=== PATIENT | female | born 1935 | race Caucasian/White ===

== ENCOUNTER → 2024-05-05 13:49 | Outpatient (REF) | payer OTHER, SELFPAY | LOC: HWRAD 13:49 | PROVIDERS: ATTENDING PHYSICIAN Student in an Organized Health Care Education/Training Program; FAMILY PHYSICIAN Internal Medicine | DX: N18.32 Chronic kidney disease, stage 3b (principal) | CPT/HCPCS: 76770 ==

== ENCOUNTER → 2024-05-26 12:03 | Outpatient (REF) | payer OTHER, SELFPAY | LOC: HWRAD 12:03 | PROVIDERS: ATTENDING PHYSICIAN Internal Medicine | DX: R51.9 Headache, unspecified (principal) | CPT/HCPCS: 70450 ==

== ENCOUNTER → 2024-06-14 14:25 | Outpatient (REF) | payer OTHER, SELFPAY ==
[2024-06-14 16:27] LABS: Urine Albumin 2+ (Neg - Trace); Urine Bilirubin Negative (Negative); Urine Character Slightly Cloudy (Clear); Urine Color Yellow; Urine Glucose Negative (Negative); Urine Ketone Trace (Negative); Urine Leukocyte 2+ (Negative); Urine Nitrite Positive (Negative); Urine Occult Blood 4+ (Negative); Urine Specific Gravity 1.015 (<1.030); Urine Urobilinogen Negative (Neg - 1+)
[2024-06-14 16:37] LABS: Urine Squamous Cell 0-2 /LPF (Few)
[2024-06-14 16:39] LABS: Urine Bacteria Moderate (Negative); Urine Red Blood Cell 80-90 /HPF (0-2); Urine White Cell 90-100 /HPF (0-5)
== END ==
LOC: REG 14:25
PROVIDERS: ATTENDING PHYSICIAN Obstetrics & Gynecology; FAMILY PHYSICIAN Internal Medicine
DX: N39.0 Urinary tract infection, site not specified (principal)
CPT/HCPCS: 81003; 81015; 87086

== ENCOUNTER → 2024-08-15 11:14 | Outpatient (REF) | payer OTHER, SELFPAY ==
[2024-08-15 21:52] LABS: Urine Albumin Trace (Neg - Trace); Urine Bilirubin Negative (Negative); Urine Character Slightly Cloudy (Clear); Urine Color Yellow; Urine Glucose Negative (Negative); Urine Ketone Negative (Negative); Urine Leukocyte 2+ (Negative); Urine Nitrite Positive (Negative); Urine Occult Blood 4+ (Negative); Urine Urobilinogen Negative (Neg - 1+)
[2024-08-15 22:20] LABS: Urine Red Blood Cell >100 /HPF (0-2)
== END ==
LOC: REG 11:14
PROVIDERS: ATTENDING PHYSICIAN Obstetrics & Gynecology; FAMILY PHYSICIAN Internal Medicine
DX: N20.0 Calculus of kidney (principal); N39.0 Urinary tract infection, site not specified
CPT/HCPCS: 74018; 81003; 81015; 87077; 87086; 87186

== ENCOUNTER → 2024-11-21 11:16 | Outpatient (REF) | payer OTHER, SELFPAY | LOC: OLABMERCHI 11:16 | PROVIDERS: ATTENDING PHYSICIAN Obstetrics & Gynecology | DX: N39.0 Urinary tract infection, site not specified (principal) | CPT/HCPCS: 87086; 87088; 87186 ==

== ENCOUNTER 2024-11-27 06:12 | Day surgery (SDC) | payer OTHER, SELFPAY ==
[2024-11-22 09:16] LABS: Hematocrit 41.1 % (37.0-47.0); Hemoglobin 13.8 g/dL (12.0-16.0); Mean Corp Hgb Conc. 33.6 g/dL (33.0-37.0); Mean Corpuscular Hgb 31.2 pg (27.0-31.0); Mean Corpuscular Volume 92.8 fL (81.0-99.0); Mean Platelet Volume 11.1 fL (7.4-10.4); Platelet Count 169 10^3/uL (130-400); Red Blood Cell Count 4.43 10^6/uL (4.20-5.40); Red Cell Dist. Width 13.2 % (11.5-14.5)
[2024-11-22 09:54] LABS: Blood Urea Nitrogen 22 mg/dl (7-17); Calcium 9.5 mg/dl (8.4-10.2); Carbon Dioxide 28 mmol/L (22-30); Chloride 100 mmol/L (98-107); Glucose 98 mg/dl (70-99); Potassium 4.5 mmol/L (3.5-5.1); Sodium 139 mmol/L (135-145); eGFR 43.54
[2024-11-22 13:03] VITALS: BMI 17.8
[2024-11-27] VITALS (10 sets, daily range): BP systolic 114–130; BP diastolic 49–59; BMI 17.8
[2024-11-27] MEDS: NORMOSOL-R/PLASMALYTE-A 1000 IV (07:12)
[2024-11-27] MEDS: Pyridium 200 MG PO (07:12)
== END 2024-11-27 10:42 | disposition home or self-care (01) ==
LOC: SDS 06:12
PROVIDERS: ATTENDING PHYSICIAN Obstetrics & Gynecology; FAMILY PHYSICIAN Internal Medicine
DX: R33.9 Retention of urine, unspecified (principal); Z87.440 Personal history of urinary (tract) infections; N32.0 Bladder-neck obstruction
CPT/HCPCS: 57287; 36415; 80048; 85027; 93005; C1713; J1580

== ENCOUNTER → 2025-03-28 09:15 | Outpatient (REF) | payer OTHER, SELFPAY | LOC: HWRAD 09:15 | PROVIDERS: ATTENDING PHYSICIAN Internal Medicine | DX: S09.90XA Unspecified injury of head, initial encounter (principal); R47.89 Other speech disturbances; H93.8X2 Other specified disorders of left ear | CPT/HCPCS: 70450 ==

== ENCOUNTER → 2025-06-20 08:29 | Outpatient (REF) | payer OTHER, SELFPAY | LOC: HWRAD 08:29 | PROVIDERS: ATTENDING PHYSICIAN Physician Assistant; FAMILY PHYSICIAN Internal Medicine | DX: M35.3 Polymyalgia rheumatica (principal); M81.0 Age-related osteoporosis without current pathological fracture | CPT/HCPCS: 77080 ==

== ENCOUNTER 2025-06-21 11:43 | Emergency (ER) | payer OTHER, SELFPAY ==
[2025-06-21 11:45] VITALS: BP 112/65
[2025-06-21 11:46] VITALS: BP 112/65
[2025-06-21 12:00] VITALS: BP 95/48
[2025-06-21 12:09] LABS: Hematocrit 45.8 % (37.0-47.0); Hemoglobin 14.4 g/dL (12.0-16.0); Mean Corp Hgb Conc. 31.4 g/dL (33.0-37.0); Mean Corpuscular Volume 96.6 fL (81.0-99.0); Nucleated Red Blood Cells % 0 %; Platelet Count 155 10^3/uL (130-400); Red Cell Dist. Width 13.3 % (11.5-14.5)
--- NOTE | 2025-06-21 12:22 | ED.GENMED ---
History of Present Illness
General
Chief Complaint: Chest Pain
Source: patient
Exam Limitations: none
Time Seen by Provider: 06/21/25 12:03
History of Present Illness
History of Present Illness:
See MDM
Past History
Past History
ED Past Medical History: HTN and Other (Osteoporosis )
ED Past Surgical History: None
Social History
Tobacco: Non-smoker
Alcohol: None
Personal:
Employment: Employed
Phy Exam
Physical Exam
Physical Exam:
See MDM
Scores
Heart Score for Chest Pain Patients
STEMI patient?: No
History: Slightly or Non-Suspicious
ECG: Nonspecific Repolarization
Age: >/= 65 years
Risk Factors: 1 or 2 Risk Factors
Troponin: </= Normal Limit
Heart Score for Chest Pain Patients: 4
Heart Score Risk: 20.3% MACE over next 6 weeks
Course
Orders/Labs/Results
Orders:
Orders
06/21/25 11:45
Electrocardiogram (*1) Urgent
Reason for Study: Chest Pain
EKG- Treatment ONCE
06/21/25 11:49
Complete Blood Count/With Diff Urgent
06/21/25 12:21
CR Chest - 2 Views Urgent
Comment:
Reason For Exam: Left side chest pain
06/21/25 12:38
Comprehensive Metabolic Panel Urgent
Troponin I Urgent
Abnormal Lab Results
06/21/25 06/21/25
11:49 12:38
MCHC 31.4 L g/dL
(33.0-37.0)
MPV 11.1 H fL
(7.4-10.4)
Absolute Lymphs (auto) 0.7 L 10^3/uL
(1.2-3.4)
Neutrophils % 78.6 H %
(42.2-75.2)
Lymphocytes % 13.4 L %
(20.5-51.1)
Sodium 134 L mmol/L
(135-145)
BUN 24 H mg/dl
(7-17)
Glucose 159 H mg/dl
(70-99)
Total Protein 6.2 L g/dl
(6.3-8.2)
06/21/25 11:49
06/21/25 12:38
Vital Signs
Initial and Last Documented VS:
Initial Vital Signs
BP Pulse Ox
112/65 96
06/21/25 11:45 06/21/25 11:45
Last Documented Vital Signs
Temp Pulse Resp BP Pulse Ox
99.1 F 72 20 95/48 95
06/21/25 13:04 06/21/25 12:45 06/21/25 11:46 06/21/25 12:00 06/21/25 12:45
MDM/Problems Addressed
Differential Diagnosis Includes:
Note:
CHIEF COMPLAINT(S)
Chest pain and shortness of breath.
HISTORY OF PRESENT ILLNESS
The patient is an 89-year-old female who presented with a chief complaint of chest pain, arm pain, and shortness of breath. These symptoms have been occurring intermittently over the past two years. The patient reported that the pain started
recently, was intense, preventing her from walking around, and her heart felt like it was 'beating like 90 miles an hour.' The symptoms were present throughout the night but resolved by the time she presented to the emergency department. The patient
denies having a history of stents or heart attacks.
PHYSICAL EXAM
General: Alert, no acute distress.
Skin: Warm, dry.
Head: Normocephalic, atraumatic
Neck: Appears supple, trachea midline.
Eyes, Ears, Nose, Mouth, and Throat: Moist mucous membranes
Cardiovascular: No signs of cyanosis. Regular rate and rhythm
Respiratory: Respirations are non-labored. Lungs clear
Abdomen: Non-distended
Musculoskeletal: No deformities. No leg edema
Neurological: No focal neurological deficit observed.
Psychiatric: Cooperative, appropriate mood and affect.
ELECTROCARDIOGRAM (EKG)
My independent EKG interpretation is normal.
PLAN
- Obtain a chest x-ray to rule out any potential underlying issues.
- Conduct blood work, including a troponin level, to evaluate cardiac function.
- Consider outpatient monitoring with a Holter monitor to detect any arrhythmias if initial tests are normal.
- Suggest a follow-up with a heel buffer for further evaluation, given the recurrent nature of symptoms.
DIFFERENTIAL DIAGNOSIS
The Differential Diagnosis includes, in no particular order and is not limited to:
- Angina pectoris
- Arrhythmias
- Myocardial infarction
- Pulmonary embolism
- Gastroesophageal reflux disease (GERD)
- Costochondritis
- Anxiety disorder
- Heart failure
- Anemia
- Pericarditis
SUMMARY OF ENCOUNTER
The patient, an 89-year-old female, was seen in the emergency department for evaluation of chest pain and shortness of breath, symptoms she has experienced intermittently for two years. An EKG performed was normal, and the plan includes a chest
x-ray and blood work to further assess her cardiac status. Outpatient evaluation, potentially including a Holter monitor, is considered, and a follow-up with a heel buffer is advised.
DISPOSITION
Discharge planned if tests are normal.
MEDICAL DECISION MAKING
- Complexity of Data Reviewed: Chronic conditions affecting care (none mentioned by the patient) and the Differential Diagnosis list.
- Data:
- Category 1: An EKG was ordered and independently interpreted. A chest x-ray and blood work, including a troponin test, are planned.
- Risk: Prescription medication management was considered due to the patients symptoms; however, further diagnostic evaluation is prioritized.
DIAGNOSIS
- Chest pain, unspecified (ICD-10: R07.9)
- Shortness of breath (ICD-10: R06.02)
EKG
My independent EKG interpretation is:
- Rhythm: Normal sinus rhythm
- Heart rate: 78 beats per minute
- [place]: Leftward axis
- ST Segment: No ST elevation
- Intervals: Within normal limits
SUMMARY OF ENCOUNTER
The patient, an 89-year-old female, was seen in the emergency department for evaluation of chest pain and shortness of breath, which she has experienced intermittently for the past two years. During the evaluation, a chest x-ray and troponin level
were performed. The chest x-ray was clear with no acute pathology, and the troponin level was negative. The EKG showed a non-ischemic pattern, which decreased suspicion for acute coronary syndrome. The patients symptoms resolved on their own.
Discussions were held regarding the potential GI-related origin of symptoms or possibly an undiagnosed arrhythmia. It was advised that she have further evaluation by her primary care doctor.
DISPOSITION
Discharge planned if tests are normal.
ASSESSMENT
The symptoms may be due to gastrointestinal-related issues or undiagnosed arrhythmia, given the absence of acute coronary syndrome indicators.
PLAN
- Recommend follow-up with primary care for further evaluation of symptoms, including potential gastrointestinal or cardiac issues.
- Suggested outpatient monitoring with a Holter monitor to detect any undiagnosed arrhythmias if initial tests remain normal.
INDEPENDENT REVIEW OF LABS AND INTERPRETATION OF TESTS
- My independent review of the chest x-ray is clear with no acute pathology.
- My independent review of the troponin level is negative.
- My independent interpretation of the EKG indicates a non-ischemic pattern.
FOLLOW-UP INSTRUCTIONS
Follow up with the primary care physician to further evaluate symptoms and discuss potential GI or cardiac evaluations.
MEDICAL DECISION MAKING
-Complexity of Data Reviewed: Differential Diagnosis including angina pectoris, arrhythmias, myocardial infarction, pulmonary embolism, gastroesophageal reflux disease (GERD), costochondritis, anxiety disorder, heart failure, anemia, pericarditis.
-Data:
Category 1
An EKG was ordered and independently interpreted. A chest x-ray and blood work, including a troponin test, were reviewed.
-Risk:
Consideration of Admission/Observation: Escalation of care including admission/observation was considered given the complexity and risk of the patients presenting complaint, exam findings, and/or their underlying comorbidities. However, ultimately,
I feel the patient is safe for outpatient management with close follow-up. Reasoning: Work-up reassuring, does not reveal any acute life/organ threatening processes, patients symptoms well controlled upon reevaluation, reexamination is reassuring,
vitals are stable, patient agreeable with discharge, reliable for follow-up.
DIAGNOSIS
- Chest pain, unspecified (ICD-10: R07.9)
- Shortness of breath (ICD-10: R06.02)
*Pulse Oximetry
SaO2: 96
Oxygen Mode of Delivery: Room air
Patient hypoxic: no
*Critical Care Note
Total Time (30-74mins, 75-104mins- exclusive of procedures): Not Applicable
ED Attending Note
-
Portions of this chart may have been created with voice recognition software.� Occasional wrong word or��sound alike� substitutions may have occurred due to the inherent limitations of voice recognition software.
Discharge Plan
Departure
Patient Disposition: Home (Routine Discharge)
Date of Disposition: 06/21/25
Time of Disposition: 14:05
Patient with high blood pressure during this ER visit?: No
Discharge Problem:
Chest discomfort
Instructions: Chest Pain PCP Follow Up
Prescriptions:
No Action
spironolactone 25 MG tablet
25 mg PO BID
estradiol 1 APPLIC cream
1 dose topical MOWEFR
Prolia 60 MG/ML syringe
60 mg SQ [id number]
acetaminophen 500 mg Tablet
500 mg PO Q6H PRN (Reason: pain)
Benefiber (guar gum) Packet
5 packet PO DAILY
Hair,Skin and Nails Tablet
1 tab PO MOWEFR
simethicone [Gas-X] 80 mg Tablet,Chewable
80 mg PO PRN PRN (Reason: Flatulance)
brimonidine-timolol [Combigan] 0.2-0.5 % Drops
1 drp OPHTHALMIC (EYE) BID
omeprazole 20 mg Tablet,Delayed Release (Dr/Ec)
20 mg PO QPM
PreserVision AREDS-2 250-90-40-1 mg Capsule
1 tab PO BID
prednisolone acetate (PF) 1 % Drops,Suspension
1 drp BOTH EYES BID
Centrum Minis Women 50 Plus 4 mg iron-200 mcg-25 mcg Tablet
1 tab PO BID
lactase
1 tab PO PRN PRN (Reason: Dairy products)
sennosides [senna] 8.6 mg Tablet
4.3 mg PO PRN PRN (Reason: Constipation)
polyethylene glycol 3350 [Miralax] 17 gram Powder In Packet
8.5 g PO PRN PRN (Reason: Constipation)
Referrals:
UNKNOWN - PT NOT,INTERVIEWE [Family Provider]
Activity Restrictions/Additional Instructions:
Please return for any worsening symptoms.
You may return at any time if you have further concerns.
Please follow up with your doctor at the first available appointment, preferably this week. Please talk to your doctor about your symptoms or whether or not to pursue it further such as a Holter monitor and an echocardiogram.
Thank you for choosing [facility].
Interventions
Interventions:
*Risk Screen - Suicide Last Done: 06/21/25 11:46
*General Assessment Last Done: 06/21/25 11:46
*Neglect/Abuse Screening Last Done: 06/21/25 11:46
*ED COVID-19 Vaccine History Last Done: 06/21/25 11:46
*ED Influenza Vaccine History Last Done: 06/21/25 11:46
[facility] Risk Assessment Tool Last Done: 06/21/25 11:46
ED- Cardiac Assessment Last Done: 06/21/25 11:46
Discharge Date and Time
Print Language: BENGALI
--- NOTE | 2025-06-21 12:45 | EDRN ---
Patient resting comfortably with friend at bedside, call iniguez in reach.
[2025-06-21 13:03] LABS: ALT (SGPT) 18 U/L (0-35); AST (SGOT) 25 U/L (14-36); Albumin 3.6 g/dl (3.5-5.0); Alkaline Phosphatase 55 U/L (38-126); Blood Urea Nitrogen 24 mg/dl (7-17); Calcium 8.7 mg/dl (8.4-10.2); Carbon Dioxide 29 mmol/L (22-30); Chloride 104 mmol/L (98-107); Glucose 159 mg/dl (70-99); Potassium 4.0 mmol/L (3.5-5.1); Sodium 134 mmol/L (135-145); Total Protein 6.2 g/dl (6.3-8.2); eGFR > 60.00
[2025-06-21 13:34] LABS: Troponin I 0.017 ng/ml
== END 2025-06-21 15:00 | disposition home or self-care (01) ==
LOC: EMR 11:43
PROVIDERS: EMERGENCY PHYSICIAN Student in an Organized Health Care Education/Training Program
DX: R07.89 Other chest pain (principal); I10 Essential (primary) hypertension; M81.0 Age-related osteoporosis without current pathological fracture
CPT/HCPCS: 99284; 71046; 80053; 84484; 85025; 93005